=== PATIENT | male | born 1985 | race Hispanic/Latino ===

== ENCOUNTER 2023-06-29 10:17 | Day surgery (SDC) | payer OTHER ==
[2023-06-24 08:59] LABS: BASOPHILS # (AUTO) 0.03 K/uL (0.00-0.20); BASOPHILS % (AUTO) 0.5 % (0.0-5.0); EOSINOPHILS % (AUTO) 1.7 % (0.0-8.0); HEMATOCRIT 43.3 % (42-54); IMMATURE GRANULOCYTE ABSOLUTE 0.01 K/uL (0-1); LYMPHOCYTES # (AUTO) 1.9 K/uL (1.0-4.8); LYMPHOCYTES % (AUTO) 33.4 % (21.0-51.0); MEAN CORPUSCULAR HEMOGLOBIN 29.1 pg (27.0-33.0); MEAN CORPUSCULAR HGB CONC 33.3 g/dL (32.0-36.0); MEAN CORPUSCULAR VOLUME 87.7 fL (79-99); MONOCYTES # (AUTO) 0.4 K/uL (0.1-1.0); MONOCYTES % (AUTO) 6.9 % (3.0-13.0); NEUTROPHILS # (AUTO) 3.3 K/uL (1.8-7.7); NEUTROPHILS % (AUTO) 57.3 % (40.0-77.0); PLATELET COUNT (AUTO) 144 K/uL (130-400); RED BLOOD CELL COUNT(AUTO) 4.94 MIL/uL (4.50-6.20); RED CELL DISTRIBUTION WIDTH 14.2 % (11.0-15.5); WHITE BLOOD COUNT (AUTO) 5.8 K/uL (4.8-10.8)
[2023-06-24 09:07] LABS: CREATININE 0.8 mg/dL (0.5-1.5)
[2023-06-24 09:15] LABS: INR 0.97 (0.85-1.15); PROTHROMBIN TIME 11.3 SEC (9.6-11.6)
[2023-06-24 09:23] VITALS: BP 139/88; PULSE 62; RESP 18
[~2023-06-29] VITALS: Ht 174 cm; Wt 94.3 kg
[2023-06-29] VITALS (17 sets, daily range): BP systolic 129–157; BP diastolic 82–99; PULSE 69–108; RESP 15–23
[~2023-06-29 10:17] MED LIST: ACET-2123 PO; BACL20TA PO; BUPR-49 PO; HYDR-3830 PO; SERT200C PO; SUMA50TA17 PO
[2023-06-29] MEDS ORDERED: MIDAZOLAM HCL 1 MG/ML 2ML VIAL IVPB ONE (10:18)
[2023-06-29] MEDS ORDERED: CEFAZOLIN SODIUM 2 GM VIAL ONE (10:45)
[2023-06-29] MEDS ORDERED: LACTATED RINGERS 1000ML 1,000 ML IV ONE (10:45)
[2023-06-29] MEDS ORDERED: IOHEXOL-350 50ML VIAL IV ONE (11:18)
[2023-06-29] MEDS ORDERED: BUPIVACAINE/PF 0.5% 30ML VIAL ONE (12:25)
[2023-06-29] MEDS ORDERED: ROCURONIUM 10MG/1ML SYR 10 MG/ML ML ONE (12:39)
[2023-06-29] MEDS ORDERED: MIDAZOLAM HCL 1 MG/ML 2ML VIAL ONE (12:39)
[2023-06-29] MEDS ORDERED: ONDANSETRON 4MG INJ ONE ×2 (12:39→13:53)
[2023-06-29] MEDS ORDERED: PROPOFOL 10 MG/ML 20ML VIAL IV ONE (12:39)
[2023-06-29] MEDS ORDERED: FENTANYL CITRATE PF 50 MCG/1 ML 2ML VIAL ONE (12:40)
[2023-06-29] MEDS ORDERED: CEFAZOLIN SODIUM 2 GM VIAL IVPB ONE (12:50)
[2023-06-29] MEDS ORDERED: BUPIVACAINE/PF 0.5% 30ML VIAL INJ ONE (13:02)
[2023-06-29] MEDS ORDERED: GABA-529 PO (13:35)
[2023-06-29] MEDS ORDERED: DOCU-116 PO (13:35)
[2023-06-29] MEDS ORDERED: METH-662 PO (13:35)
[2023-06-29] MEDS ORDERED: TRAM50TA4 PO (13:35)
[2023-06-29] MEDS ORDERED: MEPERIDINE-PF 25 MG/ML SYG IV ONE (13:42)
[2023-06-29] MEDS ORDERED: MORPHINE 4 MG SYG ONE (13:53)
[2023-06-29] MEDS ORDERED: KETOROLAC 30MG VIAL (30MG/ML) ONE (14:25)
== END 2023-06-29 15:35 | disposition home or self-care (01) ==
LOC: DAH 10:17
PROVIDERS: ATTEND Surgery
DX: K81.1 Chronic cholecystitis (principal); K82.8 Other specified diseases of gallbladder; F41.9 Anxiety disorder, unspecified; G47.33 Obstructive sleep apnea (adult) (pediatric); E66.9 Obesity, unspecified; D69.6 Thrombocytopenia, unspecified; F32.9 Major depressive disorder, single episode, unspecified; Z79.899 Other long term (current) drug therapy; Z79.01 Long term (current) use of anticoagulants; Z82.49 Family history of ischemic heart disease and other diseases of the circulatory system; Z83.3 Family history of diabetes mellitus
CPT/HCPCS: 80048; 85025; 85610; 85730; 36415; 47563; 88304; 74300; A6260; A4663; J7030; C1758; J7120; J3010; J2704; J2405 ×2; J2270; J1885; J3490 ×2; J2175; Q9967; J0690 ×2; A4649 ×2; A4930 ×2; A4215; A4223; A4222; A4221; J2250 ×2; A4600

== ENCOUNTER 2025-02-14 08:28 | Day surgery (SDC) | payer OTHER ==
[2025-02-14] VITALS (10 sets, daily range): BP systolic 120–143; BP diastolic 49–96; PULSE 67–75; RESP 16–18; TEMP 96.9–98.1
[~2025-02-14] VITALS: Ht 172.7 cm; Wt 76.2 kg
[~2025-02-14 08:28] MED LIST changes: -ACET-2123 PO; +ALBU18HF7 IH; -BACL20TA PO; -BUPR-49 PO; +CYCL5TAB3 PO; +HYDR-4068 PO; -SUMA50TA17 PO
[2025-02-14] MEDS ORDERED: METH-812 PO (08:59)
[2025-02-14] MEDS ORDERED: OMEP40CA21 PO (08:59)
[2025-02-14] MEDS ORDERED: FAMO40TA7 PO (08:59)
[2025-02-14] MEDS ORDERED: NABU-141 PO (08:59)
[2025-02-14] MEDS: 0.9%NACL 1000ML 1,000 ML IV ONE (09:17)
[2025-02-14] MEDS ORDERED: LIDOCAINE PF 100MG/5ML (2%) SYRINGE 5ML ONE (09:30)
[2025-02-14] MEDS ORDERED: proPOFol 10 MG/ML 20ML VIAL IV ONE (09:30)
[2025-02-14] MEDS ORDERED: GLYCOPYRROLATE 0.2 MG/ML 5 ML VIAL ONE (09:30)
== END 2025-02-14 11:20 | disposition home or self-care (01) ==
LOC: DAH 08:28 → ENDO 08:28
PROVIDERS: ATTEND Internal Medicine Gastroenterology
DX: K30 Functional dyspepsia (principal); K31.84 Gastroparesis; K31.89 Other diseases of stomach and duodenum; K22.89 Other specified disease of esophagus; K29.50 Unspecified chronic gastritis without bleeding; K44.9 Diaphragmatic hernia without obstruction or gangrene; R11.2 Nausea with vomiting, unspecified; F41.9 Anxiety disorder, unspecified; F43.10 Post-traumatic stress disorder, unspecified; F32.A Depression, unspecified; Z79.899 Other long term (current) drug therapy; Z98.84 Bariatric surgery status; Z86.2 Personal history of diseases of the blood and blood-forming organs and certain disorders involving the immune mechanism; Z98.890 Other specified postprocedural states; Z90.49 Acquired absence of other specified parts of digestive tract
CPT/HCPCS: 43239; J7030; J2003; J2704; J3490; A4620; A4215 ×2; A4223; A4222; A4221; A4663; A4606

== ENCOUNTER → 2025-02-27 | Outpatient (CLI) | payer OTHER ==
[~2025-02-27] MED LIST changes: -ALBU18HF7 IH; -CYCL5TAB3 PO; +FAMO40TA7 PO; -HYDR-4068 PO; +METH-812 PO; +NABU-141 PO; +OMEP40CA21 PO
--- NOTE | 2025-02-27 11:17 | HMCIMG ---
FINDINGS: There are no comparison exams. The esophagus distends normally, without any persistent stricturing or narrowing. There is normal esophageal peristalsis and emptying. The gastroesophageal junction is preserved. There is no evidence of esophagitis. No mucosal abnormality seen. No gastroesophageal reflux was seen. No hiatal hernia was demonstrated. The stomach distends well. No mucosal abnormalities are seen to suggest ulcer or cancer. No gastritis is evident. There is no extravasation. There is no evidence of gastric outlet obstruction. The duodenum is normal in appearance. There is no evidence of inflammatory change to suggest peptic ulcer disease. IMPRESSION: Normal examination. No gastroesophageal reflux seen.
== END | disposition home or self-care (01) ==
LOC: RAH 09:55
PROVIDERS: ATTEND Surgery
DX: K31.84 Gastroparesis (principal); R11.2 Nausea with vomiting, unspecified
CPT/HCPCS: 74240

== ENCOUNTER → 2025-07-09 | Outpatient (CLI) | payer OTHER ==
--- NOTE | 2025-07-10 10:38 | HMCIMG ---
EXAMINATION: NONCONTRAST MRI OF THE LEFT SHOULDER. CLINICAL HISTORY: Left shoulder pain. COMPARISON: None provided. TECHNIQUE: Multiplanar, multisequence MR images of the left shoulder are submitted. FINDINGS: There is type I acromion with no subacromial spur. The coracoclavicular ligament is intact. The acromioclavicular joint demonstrates moderate osteoarthritis with subchondral cystic changes, small marginal osteophytes, distal clavicular and proximal acromial marrow edema, and capsular edema. The supraspinatus tendon demonstrates mild insertional tendinosis with a 1.2 x 0.9 x 0.9 cm (AP by transverse by craniocaudal) calcified focus on the bursal aspect of the anterior most fibers without full-thickness tear. There is moderate subacromial-subdeltoid bursitis with fluid and edema. The subscapularis tendon demonstrates mild insertional tendinosis with 0.3 cm partial-thickness interstitial tear involving less than 25% of tendon thickness. The infraspinatus and teres minor tendons are intact without evidence of tendinopathy or tear. The musculature of the rotator cuff demonstrates normal bulk and signal. The long head of the biceps tendon is normal in course and morphology. Bicipital anchor is intact. There is otherwise normal bone marrow signal within the shoulder girdle without fracture, avascular necrosis, or osteomyelitis. The labrum demonstrates status post anterior inferior labral repair with anchor tracts, global attenuation, and degenerative tear. The glenohumeral joint is intact. IMPRESSION: Moderate acromioclavicular joint osteoarthritis with marrow and capsular edema. Supraspinatus tendinosis with 1.2 cm bursal calcification; moderate subacromial-subdeltoid bursitis. Subscapularis tendinosis with 0.3 cm partial thickness interstitial tear. Status post anterior inferior labral repair with global attenuation and degenerative tear. /[place]
== END | disposition home or self-care (01) ==
LOC: RAH 12:48
PROVIDERS: ATTEND Student in an Organized Health Care Education/Training Program
DX: M75.112 Incomplete rotator cuff tear or rupture of left shoulder, not specified as traumatic (principal); M17.12 Unilateral primary osteoarthritis, left knee; M19.012 Primary osteoarthritis, left shoulder; M67.814 Other specified disorders of tendon, left shoulder; R60.1 Generalized edema; M25.762 Osteophyte, left knee; M25.512 Pain in left shoulder
CPT/HCPCS: 73221